=== PATIENT | female | born 1985 | race Caucasian/White ===

== ENCOUNTER 2019-01-29 13:42 | Emergency (ER) | payer OTHER ==
[2019-01-29 14:47] VITALS: BP 114/69
--- NOTE | 2019-01-29 14:57 | UC ---
Skin Complaint HPI - HPI Summary HPI Summary: Pt presents with c/o swelling, tenderness and purulent discharge from right great toe. Pt states that she was playing soccer 1 week ago and "stubbed" right great toe and toe lifted off of nail bed. Pt states that she pushed nail back into place, has been soaking toe in epsom salt soaks, applying ice and taking ibuprofen. She recently flew here from [place], [place] and states that her toe feels more swollen and painful. - History of Current Complaint Chief Complaint: UCLowerExtremity Time Seen by Provider: 01/29/19 14:15 Stated Complaint: RT GREAT TOE INJURY Hx Obtained From: Patient Hx Last Menstrual Period: 01/18/19 ?: No Onset/Duration: Gradual Onset, Lasting Days, Still Present, Worse Since - onset Skin Exposure Onset/Duration: Days Ago Timing: Constant Onset Severity: Mild Current Severity: Moderate Pain Intensity: 0 Pain Scale Used: 0-10 Numeric Location: Discrete - right great toe Character: Swelling, Pain, Painful Aggravating Factor(s): Touch Alleviating Factor(s): Nothing Associated Signs & Symptoms: Positive: Drainage - has stopped, Tenderness Related History: Trauma - playing soccer - Allergy/Home Medications Allergies/Adverse Reactions: Allergies Allergy/AdvReac Type Severity Reaction Status Date / Time No Known Allergies Allergy Verified 01/29/19 14:04 Home Medications: Home Medications Multivitamin [Multivitamins] 1 cap PO DAILY 01/29/19 [History Confirmed 01/29/19 ] PMH/Surg Hx/FS Hx/Imm Hx Previously Healthy: Yes - Surgical History Surgical History: Yes Surgery Procedure, Year, and Place: bilateral knee surgeries; x1; t&a - Family History Known Family History: Positive: Cardiac Disease - Social History Occupation: Employed Full-time Lives: With Family Alcohol Use: Occasionally Substance Use Type: None Smoking Status (MU): Never Smoked Tobacco Have You Smoked in the Last Year: No - Immunization History Vaccination Up to Date: Yes Review of Systems All Other Systems Reviewed And Are Negative: Yes Constitutional: Positive: Negative Skin: Positive: Other - right great toe, mild swelling, appears to have some purulent drainage under toe nail and a paronychia. In discussion with the pt we attempted to drain paronychia and no drainage from site. ENT: Positive: Negative Respiratory: Positive: Negative Cardiovascular: Positive: Negative Physical Exam Vital Signs: Initial Vital Signs Temp 97.7 F 01/29/19 14:05 Pulse 76 01/29/19 14:05 Resp 16 01/29/19 14:05 BP 114/69 01/29/19 14:05 Pulse Ox 100 01/29/19 14:05 Procedures - Incision and Drainage Right Toe Site: right great toe medial aspect of nail bed Instrument(s): Scalpel - 11 blade Course/Dx - Differential Diagnoses - Skin Complaint Differential Diagnoses: Abscess - Diagnoses Provider Diagnosis: Infected nailbed of toe, Paronychia of great toe of right foot Discharge - Sign-Out/Discharge Documenting (check all that apply): Patient Departure All imaging exams completed and their final reports reviewed: No Studies - Discharge Plan Condition: Stable Disposition: HOME Prescriptions: Cephalexin CAP* [Keflex 500 CAP*] 500 mg PO Q12H #20 cap Sulfamethox/Trimethoprim DS* [Bactrim DS 800/160 TAB*] 1 tab PO Q12H #20 tab Patient Education Materials: Paronychia (ED), Acute Wound Care (ED) Referrals: [facility] [place]] - If Needed No Primary Care Phys,NOPCP [Primary Care Provider] - - Billing Disposition and Condition Condition: STABLE Disposition: Home
== END 2019-01-29 14:53 | disposition home or self-care (01) ==
LOC: UCCORT 13:42
DX: L03.031 Cellulitis of right toe (principal)
CPT/HCPCS: 10060; 99202; G0463